=== PATIENT | female | born 1995 | race Caucasian/White ===

== ENCOUNTER 2017-01-22 15:42 | Emergency (ER) | payer BC ==
[2017-01-22 15:51] VITALS: BP 125/78
--- NOTE | 2017-01-22 16:16 | UC ---
Minor Trauma HPI - HPI Summary HPI Summary: Patient presents s/p trauma to the left side of her forehead. She denies LOC. She complains of localized pain to the left druze, otherwise denies headache. She reports a small laceration to the left druze, which has been steri- stripped prio to arrival. She denies blurred vision, eye pain, or nausea or vomiting. She states her immunization are currentl - History of Current Complaint Chief Complaint: UCSkin Stated Complaint: FACE FOREHEAD INJURY Time Seen by Provider: 01/22/17 15:58 Hx Obtained From: Patient Hx Last Menstrual Period: 11/12/16 ?: No Onset/Duration: Sudden Onset Severity Initially: Moderate Severity Currently: Moderate Mechanism Of Injury: Blunt Trauma Aggravating Factor(s): Other: - palpation. Alleviating Factor(s): Ice Associated Signs And Symptoms: Positive: Ecchymosis, Swelling, Other: - small "Y "shaped laceration. - Risk Factors Penetrating Injury Risk Factors: Negative - Allergies/Home Medications Allergies/Adverse Reactions: Allergies Allergy/AdvReac Type Severity Reaction Status Date / Time Sulfa Antibiotics Allergy Rash Verified 03/17/15 13:36 Home Medications: Home Medications NK [No Home Medications Reported] 01/22/17 [History Confirmed 01/22/17] PMH/Surg Hx/FS Hx/Imm Hx Previously Healthy: Yes - Surgical History Surgical History: None - Family History Known Family History: Positive: None - Social History Occupation: Student Lives: Alone Alcohol Use: Occasionally Substance Use Type: None Smoking Status (MU): Never Smoked Tobacco Review of Systems Skin: Bruising, Other - small laceration of left druze at corner of the eyebrow Eyes: Other - superficial abrasion to left side of forehead, eyebrow. bleeding controlled. minor soft tissue swelling noted. Respiratory: Negative Cardiovascular: Negative Gastrointestinal: Negative Motor: Negative Musculoskeletal: Negative All Other Systems Reviewed And Are Negative: Yes Physical Exam Triage Information Reviewed: Yes Appearance: Well-Appearing Vital Signs: Initial Vital Signs Temp 98.4 F 01/22/17 15:47 Pulse 70 01/22/17 15:47 Resp 18 01/22/17 15:47 BP 125/78 01/22/17 15:47 Pulse Ox 100 01/22/17 15:47 Vital Signs Reviewed: Yes Eyes: Positive: Other: - 1.0 cm "y" shaped laceration left lateral eyebrow Skin Exam: Other - left side of forehead, superficial abrasion, bleeding controlled, minor soft tissue swelling. small "Y" shaped laceration, involving the epithelial tissue, and partially penetrates the dermal tissue. no visible muscle, tendon, bone or foreign body. patient could not sense foreign body in the wound. Minor Trauma Course/Dx - Course Course Of Treatment: Patient presents following minor head injury. There was no LOC, and patient had an normal neuo-exam. The laceration was cleaned with betadine, and using skin adhesive closed and steri-strips applied. Facial x-ray was obtained and negative for fracture. I did discuss with the patient that if any sympoms develop such as headaache, blurred vision, nausea or vomiting that she would need to be re-evalauted and futher imaging would be required. The xrays of the facial bones were negative for fracture. There were no clinical symptoms reported consistent with concussion. She was released to play field hockey. - Differential Dx/Diagnosis Provider Diagnoses: minor head trauma. facial laceration. facial abrasion Discharge - Discharge Plan Condition: Stable Disposition: HOME Patient Education Materials: Abrasion (ED), Laceration (ED), Skin Adhesive Care (ED) Referrals: Non Staff,Doctor [Medical Doctor] -
--- NOTE | 2017-01-22 17:22 | RAD ---
INDICATION: Hockey puck versus right head COMPARISON: None. TECHNIQUE: Routine views of the facial bones were obtained. REPORT: There are no interruptions of the orbital margins bilaterally. The maxillary and bilateral zygomatic bones are intact. No air-fluid levels evident in the paranasal sinuses. IMPRESSION: No radiographically apparent fracture or dislocation. If the patient's symptoms persist, follow-up imaging is recommended.
== END 2017-01-22 17:29 | disposition home or self-care (01) ==
LOC: UCEAST 15:42
DX: S01.81XA Laceration without foreign body of other part of head, initial encounter (principal); X58.XXXA Exposure to other specified factors, initial encounter; Z32.02 Encounter for pregnancy test, result negative
CPT/HCPCS: 12011; 70140; 84702; 99211; G0463